=== PATIENT | male | born 1945 | race African-American/Black ===

== ENCOUNTER 2018-11-07 06:42 | Inpatient (IN) | payer MEDICARE, OTHER ==
[~2018-11-07] VITALS: Ht 177.8 cm; Wt 86.2 kg
[~2018-11-07 06:42] MED LIST: AMLO10TA8 PO; ASPI-630 PO; BIMA2.5D OP; BIMA2.5D OU; BRIM5DRO2 EACHEYE; CARB200T4 PO; CARV25TA2 PO; CLOP75TA PO; CRESTOR40 MG PO; GLUC1CAP48 PO; LACT1CAP6 PO; LEVO125T5 PO; LOSA-73 PO; METF500T16 PO; MULT-505 PO; Maxide PO; POTA10TA12 PO; QUIN40TA16 PO; TIMO5DRO21 OU; TRIA1TAB3 PO
--- NOTE | 2018-11-07 07:19 | PHYS DOC ---
Past Medical History Past Medical History: CHF, Diabetes-Type II, High Cholesterol, Hypertension, CO , Seizure Past Surgical History: Pacemaker, Other Additional Past Surgical Histo: LEFT ARM, TRIPLE BYPASS Alcohol Use: None Drug Use: None Adult General Chief Complaint Chief Complaint: NEURO SYMPTOMS/DEFICITS HPI HPI Patient is a 73 year old m biba with stroke like symptoms went to bed nine pm 230 am woke up fell going to bathroom told the legs felt weak. she put him back to bed, 6 am noticed slurred speech called 911 prior hx of cva in the past on plavix Review of Systems Review of Systems Constitutional: Denies fever or chills [] Eyes: Denies change in visual acuity, redness, or eye pain [] HENT: Denies nasal congestion or sore throat [] Respiratory: Denies cough or shortness of breath [] Musculoskeletal: Denies back pain or joint pain [] All other systems were reviewed and found to be within normal limits, except as documented in this note. Current Medications Current Medications Current Medications Medications (Trade) Dose Ordered Sig/Yenny Start Time Stop Time Status Last Admin Dose Admin Aspirin (Children'S Aspirin) 324 mg 1X ONCE 11/07/18 08:30 11/07/18 08:31 DC 11/07/18 08:50 324 MG Info (CONTRAST GIVEN -- Rx MONITORING) 1 each PRN DAILY PRN 11/07/18 08:00 11/09/18 07:59 Iohexol (Omnipaque 350 Mg/ml) 75 ml 1X ONCE 11/07/18 08:00 11/07/18 08:01 DC 11/07/18 08:35 75 ML Sodium Chloride 500 ml @ 500 mls/hr 1X ONCE 11/07/18 07:45 11/07/18 08:44 DC 11/07/18 07:53 500 MLS/HR Allergies Allergies Allergies Coded Allergies Type Severity Reaction Last Updated Verified No Known Drug Allergies 03/19/14 No Physical Exam Physical Exam Constitutional: Well developed, well nourished, mild distress, non-toxic appearance. [] HENT: Normocephalic, atraumatic, bilateral external ears normal, oropharynx moist, no oral exudates, nose normal. [] Neck: Normal range of motion, no tenderness, supple, no stridor. [] Cardiovascular:Heart rate regular rhythm, no murmur [] Lungs & Thorax: Bilateral breath sounds clear to auscultation [] Abdomen: Bowel sounds normal, soft, no tenderness, no masses, no pulsatile masses. [] Skin: Warm, dry, no erythema, no rash. [] Back: No tenderness, no CVA tenderness. [] Extremities: No tenderness, no cyanosis, no clubbing, ROM intact, no edema. [] Psychologic: Affect normal, judgement normal, mood normal. [] Current Patient Data Vital Signs Vital Signs Date Time Temp Pulse Resp B/P (MAP) Pulse Ox O2 Delivery O2 Flow Rate FiO2 11/07/18 07:20 61 16 97 11/07/18 06:42 97.6 166/83 (110) Room Air 97.6 Lab Values Laboratory Tests Test 11/07/18 07:20 11/07/18 09:00 White Blood Count 5.4 x10^3/uL (4.0-11.0) Red Blood Count 4.90 x10^6/uL (4.30-5.70) Hemoglobin 15.2 g/dL (13.0-17.5) Hematocrit 44.3 % (39.0-53.0) Mean Corpuscular Volume 91 fL (79-100) Mean Corpuscular Hemoglobin 31 pg (25-35) Mean Corpuscular Hemoglobin Concent 34 g/dL (31-37) Red Cell Distribution Width 13.8 % (11.5-14.5) Platelet Count 214 x10^3/uL (140-400) Neutrophils (%) (Auto) 64 % (31-73) Lymphocytes (%) (Auto) 22 % (24-48) L Monocytes (%) (Auto) 13 % (0-9) H Eosinophils (%) (Auto) 0 % (0-3) Basophils (%) (Auto) 1 % (0-3) Neutrophils # (Auto) 3.5 x10^3uL (1.8-7.7) Lymphocytes # (Auto) 1.2 x10^3/uL (1.0-4.8) Monocytes # (Auto) 0.7 x10^3/uL (0.0-1.1) Eosinophils # (Auto) 0.0 x10^3/uL (0.0-0.7) Basophils # (Auto) 0.0 x10^3/uL (0.0-0.2) Prothrombin Time 14.0 SEC (11.7-14.0) Prothrombin Time INR 1.1 (0.8-1.1) Sodium Level 141 mmol/L (136-145) Potassium Level 4.2 mmol/L (3.5-5.1) Chloride Level 106 mmol/L (98-107) Carbon Dioxide Level 29 mmol/L (21-32) Anion Gap 6 (6-14) Blood Urea Nitrogen 29 mg/dL (8-26) H Creatinine 1.1 mg/dL (0.7-1.3) Estimated GFR (Cockcroft-Gault) 79.8 BUN/Creatinine Ratio 26 (6-20) H Glucose Level 117 mg/dL (70-99) H Calcium Level 9.2 mg/dL (8.5-10.1) Magnesium Level 2.0 mg/dL (1.8-2.4) Total Bilirubin 0.2 mg/dL (0.2-1.0) Aspartate Amino Transferase (AST) 22 U/L (15-37) Alanine Aminotransferase (ALT) 31 U/L (16-63) Alkaline Phosphatase 108 U/L (46-116) Troponin I Quantitative 0.018 ng/mL (0.000-0.055) Total Protein 7.5 g/dL (6.4-8.2) Albumin 3.3 g/dL (3.4-5.0) L Albumin/Globulin Ratio 0.8 (1.0-1.7) L Ethyl Alcohol Level < 10 mg/dL (0-10) Urine Collection Type Unknown Urine Color Straw Urine Clarity Hazy Urine pH 6.0 Urine Specific [place] >=1.030 Urine Protein Negative mg/dL (NEG-TRACE) Urine Glucose (UA) Negative mg/dL (NEG) Urine Ketones (Stick) Negative mg/dL (NEG) Urine Blood Large (NEG) Urine Nitrite Negative (NEG) Urine Bilirubin Negative (NEG) Urine Urobilinogen Dipstick 0.2 mg/dL (0.2 mg/dL) Urine Leukocyte Esterase Negative (NEG) Urine RBC Tntc /HPF (0-2) Urine WBC Occ /HPF (0-4) Urine Bacteria 0 /HPF (0-FEW) Urine Opiates Screen Neg (NEG) Urine Methadone Screen Neg (NEG) Urine Barbiturates Neg (NEG) Urine Phencyclidine Screen Neg (NEG) Urine Amphetamine/Methamphetamine Neg (NEG) Urine Benzodiazepines Screen Neg (NEG) Urine Cocaine Screen Neg (NEG) Urine Cannabinoids Screen Neg (NEG) Urine Ethyl Alcohol Neg (NEG) Laboratory Tests 11/07/18 07:20 Laboratory Tests 11/07/18 07:20 EKG EKG [] Interpretation Time: EKG shows a paced rhythm rate of 61 in light of that no obvious STEMI was seen interpreted by me the time of encounter QRS was prolonged. Radiology/Procedures Radiology/Procedures [] Impressions: ct head neg per radiologist over phone at 740 am IMPRESSION: 1. Mild calcific plaquing at both carotid bifurcations without high-grade stenosis. 2. Moderate calcific plaquing of the cavernous segments of both internal carotid arteries without evidence of high-grade stenosis. 3. Small left vertebral artery with occlusion or near occlusion at the foramen magnum level. 4. Atherosclerotic plaquing of the distal vertebral arteries at their junction with the basilar artery. Note: The findings were called to personnel in the [facility] ER at 9:29 AM on 11/07/2018. Course & Med Decision Making Course & Med Decision Making Pertinent Labs and Imaging studies reviewed. (See chart for details) []d/w dr whitfield stroke neurologist at at 745 am, regarding wake up stroke, with nihss of 6. recommends ct/cta to r/o large vessel cutoff. if negative can admit here. randy/summer whitfield again 930 am reviewed cta rad showing only distal left vert occluded , no need for intervention. d/w marine admit here, will consult neurology. i told family about the hematuria and the ened for outpatient follow up aspirin was orderd and swallow scren also ordered in the er. Dragon Disclaimer Dragon Disclaimer This electronic medical record was generated, in whole or in part, using a voice recognition dictation system. Departure Departure Impression: Primary Impression: CVA (cerebral vascular accident) Disposition: 09 ADMITTED INPATIENT Admitting Physician: Hazel Armendariz Condition: STABLE Referrals: BRITTANY EMERY MD (PCP) NIHSS Stroke Scale NIH Stroke Scale: NIH Stroke Scale Response (Comments) Value Level of Consciousness: 0 Alert/Responsive 0 LOC Questions: 0 Answers both correctly 0 LOC Commands: 0 Performs both tasks 0 Best Gaze: 1 Partial gaze palsy 1 Visual: 1 Partial hemianopia 1 Facial Palsy: 1 Minor paralysis 1 Motor - Left Arm 1 Drifts, but can hold 1 Motor - Right Arm 0 No drift 0 Motor - Left Leg 1 Drift but can hold 1 Motor: Right Leg 0 No drift 0 Limb Ataxia: 0 Absent 0 Sensory: 0 No loss 0 Best Language: 0 Normal 0 Dysathria: 1 Mild to moderate 1 Extinction and Inattention: 0 Normal 0 Total 6 DARIO GILBERT MD Nov 07, 2018 07:19
[2018-11-07 07:33] LABS: BASO % 1 % (0-3); EOS % 0 % (0-3); HEMATOCRIT 44.3 % (39.0-53.0); HEMOGLOBIN 15.2 g/dL (13.0-17.5); LYMPH # 1.2 x10^3/uL (1.0-4.8); LYMPH % 22 % (24-48); MEAN CORPUSCULAR HEMOGLOBIN 31 pg (25-35); MEAN CORPUSCULAR HGB CONC 34 g/dL (31-37); MEAN CORPUSCULAR VOLUME 91 fL (79-100); MONO # 0.7 x10^3/uL (0.0-1.1); MONO % 13 % (0-9); NEUT # 3.5 x10^3uL (1.8-7.7); NEUT % 64 % (31-73); PLATELET COUNT 214 x10^3/uL (140-400); RED CELL DISTRIBUTION WIDTH 13.8 % (11.5-14.5); WHITE BLOOD COUNT 5.4 x10^3/uL (4.0-11.0)
--- NOTE | 2018-11-07 07:44 | RAD ---
CT of the head without contrast, 11/07/2018: HISTORY: Stroke Comparison is made to a study from 12/11/2015. There is mild cerebral and cerebellar atrophy. The ventricles are within normal limits in size. There is no shift of the midline structures. There is no evidence of acute intracranial hemorrhage or mass effect. IMPRESSION: No acute abnormality is detected with no significant change since 12/11/2015. PQRS Compliance Statement: One or more of the following individualized dose reduction techniques were utilized for this examination: 1. Automated exposure control 2. Adjustment of the mA and/or kV according to patient size 3. Use of iterative reconstruction technique Electronically signed by: Brooks Pablo MD (11/07/2018 7:40 AM) [facility]
[2018-11-07] MEDS ORDERED: IV NORMAL SALINE 500ML BAG 500 ML IV ONE (07:45)
[2018-11-07 07:47] LABS: CALCIUM 9.2 mg/dL (8.5-10.1); CREATININE 1.1 mg/dL (0.7-1.3); GFR 79.8; POTASSIUM 4.2 mmol/L (3.5-5.1)
--- NOTE | 2018-11-07 07:47 | RAD ---
Portable chest, 11/07/2018: HISTORY: Stroke Comparison is made to a study from 12/02/2015. A left-sided transvenous pacing device remains in place with 3 leads extending into the heart. There has been a previous median sternotomy. The heart is within normal limits in size. The pulmonary vascularity is normal. There is minimal linear basilar scarring. No pulmonary infiltrate is seen. There is no evidence of pleural fluid. IMPRESSION: No acute cardiopulmonary abnormality is detected. Electronically signed by: Brooks Pablo MD (11/07/2018 7:43 AM) [facility]
[2018-11-07 07:53] LABS: ALBUMIN 3.3 g/dL (3.4-5.0); ALBUMIN/GLOBULIN RATIO 0.8 (1.0-1.7); TOTAL BILIRUBIN 0.2 mg/dL (0.2-1.0); TOTAL PROTEIN 7.5 g/dL (6.4-8.2)
[2018-11-07] MEDS ORDERED: IOHEXOL 350 MG/ML 100 ML VIAL. IV ONE (08:00)
[2018-11-07] MEDS ORDERED: CONTRAST GIVEN. MC PRN (08:00)
--- NOTE | 2018-11-07 08:11 | EKG ---
[facility] [address] [place] [address] Test Date: 2018-11-07 Test Time: 07:34:04 Pat Name: SY VALENCIA Department: Room: Gender: M Scientific Systems Analyst: : 1945 Requested By: DARIO GILBERT Order Number: [id number] Reading MD: Zane Hawkins Measurements Intervals [place] Rate: 61 P: [place]: QRS: -36 QRSD: 32 T: -129 QT: 438 QTc: 442 Interpretive Statements AV SEQUENTIAL PACED RHYTHM Electronically Signed On 11-21-2018 14:20:57 ECONOMICS LECTURER by Zane Hawkins
[2018-11-07] MEDS ORDERED: ASPIRIN CHEWABLE 81 MG TABLET. PO ONE (08:30)
[2018-11-07 09:20] LABS: BILIRUBIN,URINE NEGATIVE (NEG); NITRITE,URINE NEGATIVE (NEG); PROTEIN,URINE NEGATIVE (NEG-TRACE); UROBILINOGEN,URINE 0.2 mg/dL (0.2 mg/dL)
[2018-11-07 09:28] LABS: AMPHETAMINE/METHAMPHETAMINE NEG (NEG); BARBITURATES NEG (NEG); BENZODIAZEPINES NEG (NEG); CANNABINOIDS NEG (NEG); COCAINE NEG (NEG); METHADONE NEG (NEG); OPIATES NEG (NEG); PHENCYCLIDINE NEG (NEG)
[2018-11-07 09:30] LABS: BACTERIA,URINE 0 /HPF (0-FEW); CLARITY,URINE HAZY; COLOR,URINE STRAW; RBC,URINE TNTC /HPF (0-2); WBC,URINE OCC /HPF (0-4)
--- NOTE | 2018-11-07 09:34 | RAD ---
CTA of the head and neck with contrast, 11/07/2015: HISTORY: Left-sided weakness, stroke Multidetector CT imaging was performed following an IV bolus injection of iodinated contrast material. Multiplanar reconstructions were produced including MIPS and 3-D volume rendered reconstructions of the major arteries. The thoracic aorta is unremarkable. The origins of the cervicocephalic arteries from the arch are widely patent. There is minimal calcific plaquing at the right carotid bifurcation without significant luminal narrowing. The right internal carotid artery is widely patent up through the skull base. There is moderate calcific plaquing of its cavernous segment without evidence of high-grade stenosis. The right middle cerebral and anterior cerebral arteries and their major branches are unremarkable. The left common carotid artery is widely patent and mildly tortuous. There is moderate calcific plaquing at the left carotid bifurcation causing approximately 30 percent diameter narrowing of the left internal carotid artery origin. The left internal carotid artery in the upper neck is widely patent up through the skull base. There is moderate calcific plaquing involving its cavernous segment without evidence of high-grade stenosis. The left anterior cerebral and middle cerebral arteries and their major branches are unremarkable. The right vertebral artery in the neck is dominant and is patent up through the basilar artery. It demonstrates moderate calcific plaquing distally including its junction with the basilar artery. The left vertebral artery is patent in the neck but small. At the foramen magnum it appears to be occluded. There are several calcifications along its expected course. There is a small patent segment near its junction with the basilar artery which may be filling in a retrograde manner. The basilar artery is otherwise unremarkable. There is a left posterior communicating artery contributing to the left posterior cerebral circulation. The posterior cerebral arteries are otherwise unremarkable. IMPRESSION: 1. Mild calcific plaquing at both carotid bifurcations without high-grade stenosis. 2. Moderate calcific plaquing of the cavernous segments of both internal carotid arteries without evidence of high-grade stenosis. 3. Small left vertebral artery with occlusion or near occlusion at the foramen magnum level. 4. Atherosclerotic plaquing of the distal vertebral arteries at their junction with the basilar artery. Note: The findings were called to personnel in the [facility] ER at 9:29 AM on 11/07/2018. PQRS Compliance Statement: One or more of the following individualized dose reduction techniques were utilized for this examination: 1. Automated exposure control 2. Adjustment of the mA and/or kV according to patient size 3. Use of iterative reconstruction technique Electronically signed by: Brooks Pablo MD (11/07/2018 9:29 AM) [facility]
[2018-11-07 11:30] VITALS: BP 134/77
[2018-11-07] MEDS ORDERED: SACU1TAB7 PO (11:34)
--- NOTE | 2018-11-07 14:02 | HP ---
ADMIT DATE: 11/07/2018 CHIEF COMPLAINT: Left-sided weakness. HISTORY OF PRESENT ILLNESS: The patient is a pleasant 73-year-old male who presented with left-sided weakness. He woke at 2:30 this morning and fell in the bathroom. Family tried to get him back up, but he really could not move as well. When he woke up again this morning 06:30, he noticed he had some slurred speech. They called 911, he was brought to the ER. He clinically seemed to have a stroke, although the CAT scan really is not showing that he has associated anxiety, rated at 9/10. The symptoms are worse with moving. I discussed the case with ER physician. We are going to admit the patient and consult Neurology. PAST MEDICAL HISTORY: CHF, diabetes, hypertension, hyperlipidemia, seizures, pacemaker, left arm surgery, triple bypass. ALLERGIES: None. FAMILY HISTORY: Coronary artery disease. SOCIAL HISTORY: He is retired. He does not drink, smoke or take drugs. MEDICATIONS: He is on 12 including Plavix, Crestor, carvedilol, amlodipine, Entresto, potassium, Maxzide, Combigan eye drops, Lumigan eye drops, metformin and Synthroid. REVIEW OF SYSTEMS: Unable to obtain. The patient has had a stroke. PHYSICAL EXAMINATION: VITAL SIGNS: Temperature is afebrile, pulse 60, respirations 16, blood pressure 160/90. GENERAL: He is alert, flat affect, not talking much. His family is present. They are good support for him. HEART: Normal S1, S2. LUNGS: Clear to auscultation. ABDOMEN: Soft, positive bowel sounds. EXTREMITIES: No edema. SKIN: No rash. ENDOCRINE: No thyromegaly. LYMPHATICS: No cervical nodes. HEMATOPOIETIC: No bruising. PSYCHIATRIC: He seems depressed. NEUROLOGICAL: He is weak on the left. LABORATORY DATA: White count is 5. Electrolytes are normal. Glucose is 117, BUN 29. INR 1.1. Drug screen negative. Urinalysis negative. CAT scan of the head negative. ASSESSMENT AND PLAN: Clinical stroke. The patient has been admitted. We are consulting Neurology. I also tried to call his pellet post inspector at , Dr. Kauffman. She would like to have the patient transfer over there, although I have not officially talked to her. I talked to the nurse, she gave me, Dr. Kauffman's phone number. I will talk to her case mgr as well. We are going to try to see if we get the patient transferred. For now, PT, OT, speech therapy, daily aspirin, home meds. PROGNOSIS: Guarded. LIAL Jessika MADRIGAL DO DR: SELVIN/barbara JOB#: [id number] / [id number]
--- NOTE | 2018-11-07 14:26 | PDOC ---
Provider Note Provider Note TIN POT OPERATOR arrived to complete hematuria consult. However, upon arrival TIN POT OPERATOR was informed that patient was being transferred to [facility] within the next hour or so. Therefore, Urology will not complete consult at this time. Please call Urology if patient does not end up transferring or with any questions. LELAND LOTT APRN Nov 07, 2018 14:26
--- NOTE | 2018-11-07 14:55 | NUR ---
JAMI spoke with Jina at [facility] and confirmed pt has been accepted for transfer to room 878. JAMI arranged transportation to [facility] at 1500 via [facility]. Transfer form signed by pt's , copy given to and a copy also placed on chart. Packet on chart. Pt aware of plan and agreeable. ABBY BEAN.
--- NOTE | 2018-11-07 15:00 | NUR ---
Discharge Note: LAURA VALENCIA [facility] Discharge instructions and discharge home medications reviewed with Other facility and a copy given. All questions have been answered and understanding verbalized. Report given to VIKAS Garcia at [facility]. The following instructions and handouts were given: information about labs, tests, medications, etc. Discontinued lines and drains: IV lines in left AC and right AC not removed, patient transferred. Patient transferred to [facility] via [facility], gurney used for transport.
--- NOTE | 2018-11-07 18:53 | PDOC2 ---
NEUROLOGY CONSULT Date of Admission Date of Admission DATE: 11/07/18 TIME: 18:19 Reason for Consult Reason for Consult: IMPRESSION: CVA syndrome. Left side weakness x 1 day. Slurred speech. Metabolic encephalopathy. CHF. DM. HTN. HLD. PR, Hx. Seizure, Hx. Old CVA, Hx. 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 RECOMMENDATIONS/PLAN: Plavix 75 mg daily. ASA 81 mg to 325 mg daily. Statin HS. Treat medical and cardiac diseases. Repeat HCT in a few hours. Echo + Bubble study. MRI contraindicated due to his type of pacemaker. May consult Vascular Surgery. OT/PT. Rehab. Discussed in all detail with his and daughter at bedside on 11/07/18. HCT on 11/07/18: Negative. CTA: Left vertebral A occlusion or near occlusion. HISTORY OF THE PRESENT ILLNESS: This is a 73 -year-old AA male patient with above medical diseases was last seen in his baseline normal in the night about 9:00 p.m on 11/06/18. He woke up around 2:30 am going to bathroom told his that his legs were weak. She helped put him back to bed continued sleep. She noticed he had slurred speech around 6:30 am and called 911 to brought him to the ER of [facility]. His initial HCT was negative. His CTA reported small left vertebral artery with occlusion or near occlusion, but no acute thrombosis reported. PAST MEDICAL HISTORY: CHF, diabetes, hypertension, hyperlipidemia, seizures, old CVA. PAST SURGERY HISTORY: Pacemaker, left arm surgery, triple bypass. FAMILY HISTORY: Coronary artery disease. ALLERGY: Reviewed. MEDICATIONS: Refer to MAR SOCIAL HISTORY: Lives with his at home. Denies smoking, drinking, and illicit drug use. REVIEW OF SYSTEMS: Constitutional: No malnutrition, cachexia. Head: No recent traumatic brain or head injury. Skin: No edema, or rash. Ear: No infection. Eyes: No vision loss or color blindness. Nose: No bleeding or purulent discharges. Hearing: Hearing decrease. Neck: No injury. Cardiac: CAD, s/p CABG, CHF, Pacemaker Placement, HTN, HLD. Pulmonary: No COPD. GI: No GI ulcer, GI bleeding. Urinary/genital: BPH? Endocrinologic: Diabetes Mellitus. Skeletomuscular: No muscular atrophy, deformity. Neurological: see HP. Psychiatric: Denies drug use/abuse. Otherwise, not [id number] review of systems. PHYSICAL EXAMINATION: General appearance is in acute distress. HEENT: Normocephalic and nontraumatic. Eyes, nose, ears, and throat are unremarkable. Neck is supple. No lymphadenopathy. No bruits are heard over the carotid artery. No crepitus. Cardiovascular: S1, S2, regular rate and rhythm. Pulmonary: Clear to auscultation bilaterally. Abdomen: Bowel sounds are positive. Extremities: No rash, lesions, or edema. No restriction of range of motion NEUROLOGICAL EXAMINATION: Sleepiness. Able to follow some commands. Not fully oriented to time, place but knew his family members. PERRL. EOMI. CN: no acute focal findings. Muscle tone: Fluctuated. Muscle strength: 4- left side. DTR: 1-2 Plantar reflex: Neutral response bilaterally Gait: not examined in bed. Sensory exam: unable to access accurately due to decreased mental status. Not able to access cerebellar signs accurately due to not fully follow commands. Current Medications Current Medications Current Medications Sodium Chloride 500 ml @ 500 mls/hr 1X ONCE IV Last administered on at 07:53; Start 11/07/18 at 07:45; Stop 11/07/18 at 08:44; Status DC Iohexol (Omnipaque 350 Mg/ml) 75 ml 1X ONCE IV Last administered on 11/07/18at 08:35; Start 11/07/18 at 08:00; Stop 11/07/18 at 08:01; Status DC Info (CONTRAST GIVEN -- Rx MONITORING) 1 each PRN DAILY PRN MC SEE COMMENTS; Start 11/07/18 at 08:00; Stop 11/07/18 at 15:09; Status DC Aspirin (Children'S Aspirin) 324 mg 1X ONCE PO Last administered on 11/07/18at 08:50; Start 11/07/18 at 08:30; Stop 11/07/18 at 08:31; Status DC Aspirin (Ayesha Aspirin) 325 mg DAILYWBKFT PO ; Start 11/08/18 at 08:00; Stop at 08:00; Status DC Active Scripts Active Reported Entresto 49 mg-51 mg Tablet (Sacubitril/Valsartan) 1 Each Tablet 1 Each PO BID Combigan Eye Drops (Brimonidine Tartrate/Timolol) 5 Ml Drops 5 Ml EACHEYE BID Triamterene-Hctz 37.5-25 Mg Tb (Triamterene/Hydrochlorothiazid) 1 Each Tablet 1 Tab PO DAILY Potassium Chloride 10 Meq Tablet.er 3 Tab PO DAILY Clopidogrel (Clopidogrel Bisulfate) 75 Mg Tablet 75 Mg PO DAILY Lumigan (Bimatoprost) 2.5 Ml Drops 1 Drop OU HS Amlodipine Besylate 10 Mg Tablet 10 Mg PO DAILY Metformin Hcl 500 Mg Tablet 500 Mg PO DAILYWBKFT Levothyroxine Sodium 125 Mcg Tablet 125 Mcg PO DAILYAC Crestor (Rosuvastatin Calcium) 40 Mg Tablet 40 Mg PO HS Carbamazepine 200 Mg Tablet 400 Mg PO BID Carvedilol 25 Mg Tablet 25 Mg PO BID Allergies Allergies: Allergies Coded Allergies Type Severity Reaction Last Updated Verified No Known Drug Allergies 03/19/14 No ROS Review of System The patient denies any associated fevers, chills, headache, ear pain, rhinorrhea , sore throat, stiff neck, productive cough, chest pain, shortness of breath, back or flank pain, abdominal pain, nausea, vomiting, diarrhea, constipation, dysuria, rash, numbness, weakness, tingling, incontinence, difficulty ambulating, or diaphoresis. Physical Exam Physical Exam General: Well developed, well nourished, no acute distress, well appearing HEENT: Pupils equally round and reactive to light, EOMI, no discharge, normal conjunctiva Neck: Supple, no nuchal rigidity, no JVD, trachea midline, no tenderness Cardiac: RRR, no murmurs, no gallops, no rubs Chest/Lungs: CTAB, no wheeze, no rhonchi, no crackles Abdomen: soft, non-distended, no guarding, no peritoneal signs, non-tender Back: No tenderness Extremities: no edema, pulses intact, non-tender,capillary refill <3 sec bilateral upper and lower extremities, Neuro: Alert and oriented x 4, no focal deficits, normal speech Vitals Vitals: Vital Signs Date Time Temp Pulse Resp B/P (MAP) Pulse Ox O2 Delivery O2 Flow Rate FiO2 11/07/18 11:49 Room Air 11/07/18 11:30 98.2 60 16 134/77 (96) 98 98.2 Labs Labs Laboratory Tests Test 11/07/18 06:53 11/07/18 07:20 11/07/18 09:00 11/07/18 12:19 Glucose (Fingerstick) 97 mg/dL (70-99) 114 mg/dL (70-99) White Blood Count 5.4 x10^3/uL (4.0-11.0) Red Blood Count 4.90 x10^6/uL (4.30-5.70) Hemoglobin 15.2 g/dL (13.0-17.5) Hematocrit 44.3 % (39.0-53.0) Mean Corpuscular Volume 91 fL (79-100) Mean Corpuscular Hemoglobin 31 pg (25-35) Mean Corpuscular Hemoglobin Concent 34 g/dL (31-37) Red Cell Distribution Width 13.8 % (11.5-14.5) Platelet Count 214 x10^3/uL (140-400) Neutrophils (%) (Auto) 64 % (31-73) Lymphocytes (%) (Auto) 22 % (24-48) Monocytes (%) (Auto) 13 % (0-9) Eosinophils (%) (Auto) 0 % (0-3) Basophils (%) (Auto) 1 % (0-3) Neutrophils # (Auto) 3.5 x10^3uL (1.8-7.7) Lymphocytes # (Auto) 1.2 x10^3/uL (1.0-4.8) Monocytes # (Auto) 0.7 x10^3/uL (0.0-1.1) Eosinophils # (Auto) 0.0 x10^3/uL (0.0-0.7) Basophils # (Auto) 0.0 x10^3/uL (0.0-0.2) Prothrombin Time 14.0 SEC (11.7-14.0) Prothromb Time International Ratio 1.1 (0.8-1.1) Sodium Level 141 mmol/L (136-145) Potassium Level 4.2 mmol/L (3.5-5.1) Chloride Level 106 mmol/L (98-107) Carbon Dioxide Level 29 mmol/L (21-32) Anion Gap 6 (6-14) Blood Urea Nitrogen 29 mg/dL (8-26) Creatinine 1.1 mg/dL (0.7-1.3) Estimated GFR (Cockcroft-Gault) 79.8 BUN/Creatinine Ratio 26 (6-20) Glucose Level 117 mg/dL (70-99) Calcium Level 9.2 mg/dL (8.5-10.1) Magnesium Level 2.0 mg/dL (1.8-2.4) Total Bilirubin 0.2 mg/dL (0.2-1.0) Aspartate Amino Transf (AST/SGOT) 22 U/L (15-37) Alanine Aminotransferase (ALT/SGPT) 31 U/L (16-63) Alkaline Phosphatase 108 U/L (46-116) Troponin I Quantitative 0.018 ng/mL (0.000-0.055) Total Protein 7.5 g/dL (6.4-8.2) Albumin 3.3 g/dL (3.4-5.0) Albumin/Globulin Ratio 0.8 (1.0-1.7) Ethyl Alcohol Level < 10 mg/dL (0-10) Urine Collection Type Unknown Urine Color Straw Urine Clarity Hazy Urine pH 6.0 Urine Specific Ferney >=1.030 Urine Protein Negative mg/dL (NEG-TRACE) Urine Glucose (UA) Negative mg/dL (NEG) Urine Ketones (Stick) Negative mg/dL (NEG) Urine Blood Large (NEG) Urine Nitrite Negative (NEG) Urine Bilirubin Negative (NEG) Urine Urobilinogen Dipstick 0.2 mg/dL (0.2 mg/dL) Urine Leukocyte Esterase Negative (NEG) Urine RBC Tntc /HPF (0-2) Urine WBC Occ /HPF (0-4) Urine Bacteria 0 /HPF (0-FEW) Urine Opiates Screen Neg (NEG) Urine Methadone Screen Neg (NEG) Urine Barbiturates Neg (NEG) Urine Phencyclidine Screen Neg (NEG) Urine Amphetamine/Methamphetamine Neg (NEG) Urine Benzodiazepines Screen Neg (NEG) Urine Cocaine Screen Neg (NEG) Urine Cannabinoids Screen Neg (NEG) Urine Ethyl Alcohol Neg (NEG) Laboratory Tests Test 11/07/18 06:53 11/07/18 07:20 11/07/18 09:00 11/07/18 12:19 Glucose (Fingerstick) 97 mg/dL (70-99) 114 mg/dL (70-99) White Blood Count 5.4 x10^3/uL (4.0-11.0) Red Blood Count 4.90 x10^6/uL (4.30-5.70) Hemoglobin 15.2 g/dL (13.0-17.5) Hematocrit 44.3 % (39.0-53.0) Mean Corpuscular Volume 91 fL (79-100) Mean Corpuscular Hemoglobin 31 pg (25-35) Mean Corpuscular Hemoglobin Concent 34 g/dL (31-37) Red Cell Distribution Width 13.8 % (11.5-14.5) Platelet Count 214 x10^3/uL (140-400) Neutrophils (%) (Auto) 64 % (31-73) Lymphocytes (%) (Auto) 22 % (24-48) Monocytes (%) (Auto) 13 % (0-9) Eosinophils (%) (Auto) 0 % (0-3) Basophils (%) (Auto) 1 % (0-3) Neutrophils # (Auto) 3.5 x10^3uL (1.8-7.7) Lymphocytes # (Auto) 1.2 x10^3/uL (1.0-4.8) Monocytes # (Auto) 0.7 x10^3/uL (0.0-1.1) Eosinophils # (Auto) 0.0 x10^3/uL (0.0-0.7) Basophils # (Auto) 0.0 x10^3/uL (0.0-0.2) Prothrombin Time 14.0 SEC (11.7-14.0) Prothromb Time International Ratio 1.1 (0.8-1.1) Sodium Level 141 mmol/L (136-145) Potassium Level 4.2 mmol/L (3.5-5.1) Chloride Level 106 mmol/L (98-107) Carbon Dioxide Level 29 mmol/L (21-32) Anion Gap 6 (6-14) Blood Urea Nitrogen 29 mg/dL (8-26) Creatinine 1.1 mg/dL (0.7-1.3) Estimated GFR (Cockcroft-Gault) 79.8 BUN/Creatinine Ratio 26 (6-20) Glucose Level 117 mg/dL (70-99) Calcium Level 9.2 mg/dL (8.5-10.1) Magnesium Level 2.0 mg/dL (1.8-2.4) Total Bilirubin 0.2 mg/dL (0.2-1.0) Aspartate Amino Transf (AST/SGOT) 22 U/L (15-37) Alanine Aminotransferase (ALT/SGPT) 31 U/L (16-63) Alkaline Phosphatase 108 U/L (46-116) Troponin I Quantitative 0.018 ng/mL (0.000-0.055) Total Protein 7.5 g/dL (6.4-8.2) Albumin 3.3 g/dL (3.4-5.0) Albumin/Globulin Ratio 0.8 (1.0-1.7) Ethyl Alcohol Level < 10 mg/dL (0-10) Urine Collection Type Unknown Urine Color Straw Urine Clarity Hazy Urine pH 6.0 Urine Specific Ferney >=1.030 Urine Protein Negative mg/dL (NEG-TRACE) Urine Glucose (UA) Negative mg/dL (NEG) Urine Ketones (Stick) Negative mg/dL (NEG) Urine Blood Large (NEG) Urine Nitrite Negative (NEG) Urine Bilirubin Negative (NEG) Urine Urobilinogen Dipstick 0.2 mg/dL (0.2 mg/dL) Urine Leukocyte Esterase Negative (NEG) Urine RBC Tntc /HPF (0-2) Urine WBC Occ /HPF (0-4) Urine Bacteria 0 /HPF (0-FEW) Urine Opiates Screen Neg (NEG) Urine Methadone Screen Neg (NEG) Urine Barbiturates Neg (NEG) Urine Phencyclidine Screen Neg (NEG) Urine Amphetamine/Methamphetamine Neg (NEG) Urine Benzodiazepines Screen Neg (NEG) Urine Cocaine Screen Neg (NEG) Urine Cannabinoids Screen Neg (NEG) Urine Ethyl Alcohol Neg (NEG) DANIS ONEIL MD Nov 07, 2018 18:53
[2018-11-08] MEDS ORDERED: ASPIRIN 325 MG TABLET PO SCH (08:00)
== END 2018-11-07 15:00 | disposition short-term general hospital (02) | DRG 64 ==
LOC: ER 06:42 → 6 SOUTH 09:40
PROVIDERS: ADMIT Internal Medicine; ATTEND Internal Medicine
DX: I63.212 Cerebral infarction due to unspecified occlusion or stenosis of left vertebral artery (principal); G93.41 Metabolic encephalopathy; R53.1 Weakness; R31.9 Hematuria, unspecified; E11.9 Type 2 diabetes mellitus without complications; E78.00 Pure hypercholesterolemia, unspecified; E78.5 Hyperlipidemia, unspecified; I11.0 Hypertensive heart disease with heart failure; I50.9 Heart failure, unspecified; Z79.02 Long term (current) use of antithrombotics/antiplatelets; Z79.82 Long term (current) use of aspirin; Z82.49 Family history of ischemic heart disease and other diseases of the circulatory system; Z86.73 Personal history of transient ischemic attack (TIA), and cerebral infarction without residual deficits; I25.2 Old myocardial infarction; R29.701 NIHSS score 1
CPT/HCPCS: 36415; 70450; 70496; 70498; 71045; 80053; 80307; 81001; 82962; 83735; 84484; 85025; 85610; 93005; G0480; J7040; Q9967; 92610; 99285-25; G0378